=== PATIENT | male | born 1985 | race Caucasian/White ===

== ENCOUNTER → 2017-02-13 | Outpatient (CLI) | payer BC ==
[2013-04-23 15:20] VITALS: BP 135/84
[~2017-02-13] MED LIST: DEPAKOTE ER500 M1 PO; LUTEIN20 M1 PO; MILK THISTLE PO; MULTI VITAMINS1 TAB PO; OMEGA-3 FISH1200 MG PO; SUPER B COMPLEX1 TA2 PO; VITAMIN C500 MG PO
== END ==
LOC: LAB 13:15
DX: R56.9 Unspecified convulsions (principal)

== ENCOUNTER → 2017-03-16 | Outpatient (CLI) | payer BC ==
[2013-04-23 15:20] VITALS: BP 135/84
== END ==
LOC: LAB 13:43
DX: R56.9 Unspecified convulsions (principal)

== ENCOUNTER → 2018-03-09 | Outpatient (CLI) | payer OTHER ==
[2013-04-23 15:20] VITALS: BP 135/84
== END ==
LOC: LAB 12:08
DX: R56.9 Unspecified convulsions (principal)

== ENCOUNTER → 2019-01-01 | Outpatient (CLI) | payer OTHER ==
[2013-04-23 15:20] VITALS: BP 135/84
== END ==
LOC: LAB 11:53
DX: R56.9 Unspecified convulsions (principal)

== ENCOUNTER → 2019-08-30 | Outpatient (CLI) | payer OTHER ==
[2013-04-23 15:20] VITALS: BP 135/84
== END ==
LOC: LAB 13:31
DX: R56.9 Unspecified convulsions (principal)

== ENCOUNTER → 2020-12-09 | Outpatient (CLI) | payer OTHER ==
[2013-04-23 15:20] VITALS: BP 135/84
== END ==
LOC: LAB 15:48
DX: R56.9 Unspecified convulsions (principal)

== ENCOUNTER → 2021-06-09 | Outpatient (CLI) | payer OTHER ==
[2021-06-09 09:29] LABS: BASO # 0.01 K/mm3 (0.02-0.10); EOS # 0.06 K/mm3 (0.04-0.40); EOS % 0.9 % (0.0-4.0); HEMATOCRIT 48.5 % (42.0-52.0); HEMOGLOBIN 16.3 g/dL (13.5-18.0); LYMPH# 1.88 K/mm3 (1.50-4.00); MEAN CELL VOLUME 94 fl (78-100); MEAN CORPUSCULAR HEMOGLOBIN 32 pg (27-31); MEAN CORPUSCULAR HGB CONC 34 g/dL (33-37); MONO # 0.59 K/mm3 (0.20-0.80); NEU # 4.22 K/mm3 (1.40-6.50); PLATELET COUNT 196 K/mm3 (130-400); RED BLOOD COUNT 5.17 M/mm3 (4.20-5.60); WHITE BLOOD COUNT 6.8 K/mm3 (4.8-10.8)
[2021-06-09 09:38] LABS: ALBUMIN 4.5 g/dL (3.5-5.0); POTASSIUM 4.2 mmol/L (3.5-5.1)
[2021-06-09 09:39] LABS: CALCIUM 9.1 mg/dL (8.3-10.5)
[2021-06-09 09:42] LABS: TOTAL BILIRUBIN 0.6 mg/dL (0.2-1.2)
== END ==
LOC: LAB 09:15
PROVIDERS: Family Medicine
DX: Z00.00 Encounter for general adult medical examination without abnormal findings (principal); Z13.1 Encounter for screening for diabetes mellitus; Z13.220 Encounter for screening for lipoid disorders; Z80.6 Family history of leukemia

== ENCOUNTER → 2021-10-06 | Outpatient (CLI) | payer OTHER ==
[2021-10-06 07:55] LABS: ALBUMIN 4.4 g/dL (3.5-5.0)
[2021-10-06 07:57] LABS: TOTAL PROTEIN 6.8 g/dL (6.4-8.3)
[2021-10-06 07:59] LABS: TOTAL BILIRUBIN 0.5 mg/dL (0.2-1.2)
[2021-10-06 08:03] LABS: DIRECT BILIRUBIN 0.2 mg/dL (0.0-0.5)
== END ==
LOC: LAB 07:23
PROVIDERS: Family Medicine
DX: E78.2 Mixed hyperlipidemia (principal)

== ENCOUNTER → 2022-02-15 | Outpatient (CLI) | payer OTHER | LOC: LAB 16:23 | DX: R56.9 Unspecified convulsions (principal) ==

== ENCOUNTER → 2022-09-08 | Outpatient (CLI) | payer OTHER | LOC: LAB 16:16 | DX: J03.90 Acute tonsillitis, unspecified (principal); Z20.822 Contact with and (suspected) exposure to COVID-19 ==

== ENCOUNTER → 2023-07-20 | Outpatient (CLI) | payer OTHER ==
[2023-07-20 18:37] LABS: ALBUMIN 4.7 g/dL (3.5-5.0)
[2023-07-20 18:38] LABS: BASO # 0.03 K/mm3 (0.02-0.10); CALCIUM 9.2 mg/dL (8.3-10.5); EOS # 0.51 K/mm3 (0.04-0.40); EOS % 6.4 % (0.0-4.0); HEMATOCRIT 47.5 % (42.0-52.0); HEMOGLOBIN 16.2 g/dL (13.5-18.0); MEAN CELL VOLUME 94 fl (78-100); MEAN CORPUSCULAR HEMOGLOBIN 32 pg (27-31); MEAN CORPUSCULAR HGB CONC 34 g/dL (33-37); MEAN PLATELET VOLUME 8.8 fl (7.4-10.4); MONO # 0.64 K/mm3 (0.20-0.80); NEU # 4.61 K/mm3 (1.40-6.50); PLATELET COUNT 192 K/mm3 (130-400); RED BLOOD COUNT 5.07 M/mm3 (4.20-5.60); RED CELL DISTRIBUTION WIDTH 12.9 % (11.5-14.5)
[2023-07-20 18:40] LABS: TOTAL PROTEIN 7.2 g/dL (6.4-8.3)
[2023-07-20 18:41] LABS: TOTAL BILIRUBIN 0.5 mg/dL (0.2-1.2)
[2023-07-20 18:44] LABS: URINE APPEARANCE CLEAR (CLEAR); URINE BILIRUBIN NEGATIVE (NEGATIVE); URINE BLOOD NEGATIVE (NEGATIVE); URINE COLOR YELLOW (YELLOW); URINE GLUCOSE NEGATIVE (NEGATIVE); URINE KETONE NEGATIVE (NEGATIVE); URINE LEUKOCYTE ESTERASE NEGATIVE (NEGATIVE); URINE NITRATE NEGATIVE (NEGATIVE); URINE PROTEIN(semi-quant) NEGATIVE (NEGATIVE); URINE WBC 0-1 /hpf (0-3)
== END ==
LOC: LAB 18:16
PROVIDERS: Nurse Practitioner Family
DX: R10.12 Left upper quadrant pain (principal)

== ENCOUNTER → 2024-01-05 | Outpatient (CLI) | payer OTHER | LOC: LAB 14:01 | DX: E78.2 Mixed hyperlipidemia (principal) ==

== ENCOUNTER → 2024-03-15 | Outpatient (CLI) | payer OTHER ==
[2024-03-15 14:36] LABS: ALBUMIN 4.5 g/dL (3.5-5.0)
[2024-03-15 14:39] LABS: TOTAL PROTEIN 6.7 g/dL (6.4-8.3)
[2024-03-15 14:41] LABS: TOTAL BILIRUBIN 0.4 mg/dL (0.2-1.2)
[2024-03-15 22:49] LABS: HEPATITIS C VIRUS ANTIBODY Negative (Nonreactiv)
== END ==
LOC: LAB 14:09
PROVIDERS: Family Medicine
DX: Z13.1 Encounter for screening for diabetes mellitus (principal); Z11.4 Encounter for screening for human immunodeficiency virus [HIV]; Z11.59 Encounter for screening for other viral diseases; G40.409 Other generalized epilepsy and epileptic syndromes, not intractable, without status epilepticus